=== PATIENT | female | born 1975 | race Caucasian/White ===

== ENCOUNTER 2024-03-30 17:53 | Emergency (ER) | payer OTHER ==
[~2024-03-30] VITALS: Ht 152.4 cm; Wt 61.0 kg
[2024-03-30 17:58] VITALS: O2SAT 99
[2024-03-30 18:42] LABS: CLARITY URINE CLEAR (CLEAR); COLOR URINE YELLOW (YELLOW); GLUCOSE URINE NEGATIVE (NEGATIVE); KETONES URINE NEGATIVE (NEGATIVE); LEUKOCYTE ESTERASE URINE 2+ (NEGATIVE); NITRITE URINE NEGATIVE (NEGATIVE); OCCULT BLOOD URINE 1+ (NEGATIVE); PROTEIN URINE NEGATIVE (NEGATIVE); SPECIFIC GRAVITY URINE 1.005 (1.005-1.030); UROBILINOGEN URINE 0.2 E.U./dL (0.2-1.0)
[2024-03-30 19:00] LABS: BACTERIA URINE 1+; SQUAMOUS EPITHELIAL CELL URINE FEW /lpf (RARE/1+)
[2024-03-30 19:01] LABS: WBC URINE 25-50 /hpf (0-2); YEAST URINE RARE
[2024-03-30] MEDS ORDERED: CEFP200T14 MT (19:26)
[2024-03-30 19:44] VITALS: BP 129/85; PULSE 94; RESP 16; TEMP 98.7
== END 2024-03-30 19:45 | disposition home or self-care (01) ==
LOC: ER 17:53
DX: N39.0 Urinary tract infection, site not specified (principal); Z90.49 Acquired absence of other specified parts of digestive tract; Z98.890 Other specified postprocedural states; Z90.89 Acquired absence of other organs; Z98.51 Tubal ligation status
CPT/HCPCS: 81003; 81025; 87077; 87186; 99283